=== PATIENT | female | born 1970 | race Caucasian/White ===

== ENCOUNTER 2019-07-07 11:50 | Emergency (ER) | payer MEDICAID ==
[~2019-07-07] VITALS: Ht 162.6 cm; Wt 74.5 kg
[2019-07-07 11:52] VITALS: BP 128/87
[2019-07-07] MEDS ORDERED: HYDR-4383 PO (13:25)
[2019-07-07] MEDS ORDERED: HYDROcodone/acetaminophen 5mg/325mg tablet PO ONE (13:25)
== END 2019-07-07 14:30 | disposition home or self-care (01) ==
LOC: ER 11:51
DX: S93.402A Sprain of unspecified ligament of left ankle, initial encounter (principal); I10 Essential (primary) hypertension; Z79.899 Other long term (current) drug therapy; X50.1XXA Overexertion from prolonged static or awkward postures, initial encounter; Y93.89 Activity, other specified; Y92.89 Other specified places as the place of occurrence of the external cause; Y99.8 Other external cause status
CPT/HCPCS: 73610; 99283